=== PATIENT | male | born 1955 | race Caucasian/White ===

== ENCOUNTER 2024-04-21 13:53 | Emergency (ER) | payer MEDICAID ==
[~2024-04-21] VITALS: Ht 175.3 cm; Wt 77.1 kg
[2024-04-21 14:07] VITALS: BP 140/80; PULSE 80; RESP 18; TEMP 98.1; O2SAT 99
[2024-04-21] MEDS: ONDANSETRON 4 MG/2 ML VIAL IVP ONE (14:51)
[2024-04-21] MEDS: NACL 0.9% 1,000 ML IV ONE (14:51)
[2024-04-21] MEDS: KETOROLAC 30 MG/ML VIAL IVP ONE (14:52)
[2024-04-21 14:55] LABS: EOSINOPHILS # (AUTO) 0.7 K/uL (0-0.4); EOSINOPHILS % (AUTO) 15.9 % (0.0-4.0); HEMATOCRIT 38.4 % (36-52); HEMOGLOBIN 13.1 g/dL (12.0-18.0); LYMPHOCYTES # (AUTO) 1.2 K/uL (2.0-11.5); LYMPHOCYTES % (AUTO) 27.2 % (20.5-51.1); MEAN CORPUSCULAR HEMOGLOBIN 28 pg (27-31); MEAN CORPUSCULAR HGB CONC 34 g/dL (33-37); MONOCYTES # (AUTO) 0.3 K/uL (0.8-1.0); MONOCYTES % (AUTO) 6.9 % (1.7-9.3); NEUTROPHILS # (AUTO) 2.2 K/uL (1.8-7.7); PLATELET COUNT (AUTO) 150 K/uL (140-450); RED BLOOD CELL COUNT(AUTO) 4.74 MIL/uL (4.20-6.10); RED CELL DISTRIBUTION WIDTH 15.1 % (11.6-13.7); WHITE BLOOD COUNT (AUTO) 4.6 K/uL (4.8-10.8)
[2024-04-21 15:05] LABS: ALANINE AMINOTRANSFERASE 37 U/L (12-78); ALBUMIN 3.6 g/dL (3.4-5.0); ALKALINE PHOSPHATASE 102 U/L (50-136); ASPARTATE AMINOTRANSFERASE 23 U/L (15-37); BILIRUBIN,DIRECT 0.1 mg/dL (0.0-0.3); LIPASE 22 U/L (16-77); PHOSPHORUS 3.6 mg/dL (2.5-4.9); TOTAL BILIRUBIN 0.6 mg/dL (0.0-1.0); TOTAL PROTEIN, SERUM 7.1 g/dL (6.4-8.2)
[2024-04-21 15:11] LABS: ANION GAP 10.2 (8-16); CALCIUM 8.9 mg/dL (8.5-10.1); CARBON DIOXIDE 30.4 mmol/L (21-32); CREATININE 1.2 mg/dL (0.6-1.3); POTASSIUM 3.6 mmol/L (3.5-5.1)
[2024-04-21] MEDS: ASPIRIN 81 MG TAB.CHEW PO ONE (17:18)
[2024-04-21 22:41] VITALS: BP 154/92; PULSE 71; RESP 17; TEMP 98.1; O2SAT 98
== END 2024-04-21 22:40 | disposition short-term general hospital (02) ==
LOC: MED 13:53
DX: I21.4 Non-ST elevation (NSTEMI) myocardial infarction (principal); I10 Essential (primary) hypertension
CPT/HCPCS: 36415; 71045; 80048; 80076; 83690; 83735; 84100; 84484; 85025; 93005; 96361; 96374; 96375; 99291; J1885; J2405; J7030; 99285